=== PATIENT | male | born 1960 | race Two or more races ===

== ENCOUNTER 2017-06-18 11:53 | Emergency (ER) | payer OTHER ==
[~2017-06-18 11:53] MED LIST: CIP500 PO; D3 VITAMIN400 IU/ML; MOT600 PO; NOR5 PO; PRE10 PO; PULMICORT INH
[2017-06-18 12:59] LABS: BASOPHIL % 0.6 % (0-2); PLATELET COUNT 183 x10^3mcL (130-400); RED CELL DISTRIBUTION WIDTH 13.2 % (11.5-14.5)
[2017-06-18 13:03] LABS: CALCIUM 8.6 mg/dL (8.5-10.1); CARBON DIOXIDE 26.5 mmol/L (21-32); CHLORIDE SERUM 105 mmol/L (98-107); CREATININE SERUM 1.1 mg/dL (0.7-1.3); GFR1 > 60 mL/min; GLUCOSE SERUM 151 mg/dL (74-106); SODIUM SERUM 138 mmol/L (136-145)
[2017-06-18 13:04] LABS: microscopic required? NO
[2017-06-18 13:08] LABS: ALBUMIN 3.5 g/dL (3.4-5.0); ALKALINE PHOSPHATASE 77 U/L (46-116); ALT/SGPT 35 U/L (16-63); AST/SGOT 20 U/L (15-37); BILIRUBIN TOTAL 0.5 mg/dL (0.20-1.00); TOTAL PROTEIN, SERUM 7.5 g/dL (6.4-8.2)
[2017-06-18 13:26] LABS: UA SPECIFIC GRAVITY >=1.030 (1.005-1.035); urine erythrocyte NEGATIVE (NEGATIVE)
[2017-06-18 14:53] VITALS: BP 138/82
== END 2017-06-18 14:53 | disposition home or self-care (01) ==
LOC: ED 11:53
PROVIDERS: Emergency Medicine
DX: B34.9 Viral infection, unspecified (principal); E11.9 Type 2 diabetes mellitus without complications; I10 Essential (primary) hypertension; J45.909 Unspecified asthma, uncomplicated; E78.00 Pure hypercholesterolemia, unspecified
CPT/HCPCS: J1885; J7030

== ENCOUNTER 2017-09-18 09:04 | Emergency (ER) | payer OTHER ==
[2017-09-18 10:43] VITALS: BP 125/81
== END 2017-09-18 10:43 | disposition home or self-care (01) ==
LOC: ED 09:04
DX: J06.9 Acute upper respiratory infection, unspecified (principal)

== ENCOUNTER 2017-12-29 07:21 | Emergency (ER) | payer OTHER ==
[~2017-12-29] VITALS: Ht 177.8 cm; Wt 100.2 kg
[2017-12-29 07:30] VITALS: Ht 177.8 cm; Wt 100.2 kg
[2017-12-29 08:28] LABS: microscopic required? NO
[2017-12-29 08:34] LABS: PLATELET COUNT 233 x10^3mcL (130-400); RED CELL DISTRIBUTION WIDTH 12.9 % (11.5-14.5)
[2017-12-29 08:47] LABS: CALCIUM 8.6 mg/dL (8.5-10.1); CARBON DIOXIDE 27.7 mmol/L (21-32); CHLORIDE SERUM 105 mmol/L (98-107); GFR1 > 60 mL/min; GLUCOSE SERUM 111 mg/dL (74-106); POTASSIUM SERUM 3.9 mmol/L (3.5-5.1); SODIUM SERUM 140 mmol/L (136-145)
[2017-12-29 08:50] LABS: urine erythrocyte NEGATIVE (NEGATIVE)
[2017-12-29 08:58] LABS: ALBUMIN 3.5 g/dL (3.4-5.0); ALKALINE PHOSPHATASE 84 U/L (46-116); ALT/SGPT 41 U/L (16-63); AMYLASE 44 U/L (25-115); AST/SGOT 23 U/L (15-37); BILIRUBIN TOTAL 0.6 mg/dL (0.20-1.00); CHOLESTEROL 133 mg/dL (<200); HDL CHOLESTEROL 40 mg/dL (40-60); LIPASE 146 IU/L (73-393); T4(THYROXINE) 7.6 ug/dL (4.7-13.3); TOTAL PROTEIN, SERUM 7.2 g/dL (6.4-8.2); URIC ACID 8.3 mg/dL (3.5-7.2)
[2017-12-29 10:11] VITALS: BP 139/89
== END 2017-12-29 10:11 | disposition home or self-care (01) ==
LOC: ED 07:21
PROVIDERS: Emergency Medicine
DX: M10.9 Gout, unspecified (principal); E11.9 Type 2 diabetes mellitus without complications; I10 Essential (primary) hypertension; E78.00 Pure hypercholesterolemia, unspecified; J45.909 Unspecified asthma, uncomplicated
CPT/HCPCS: 36415; 83880

== ENCOUNTER 2018-04-05 09:33 | Emergency (ER) | payer OTHER ==
[~2018-04-05] VITALS: Ht 177.8 cm; Wt 100.0 kg
[2018-04-05 11:58] VITALS: BP 123/75
== END 2018-04-05 11:58 | disposition home or self-care (01) ==
LOC: ED 09:33
DX: M25.571 Pain in right ankle and joints of right foot (principal); I10 Essential (primary) hypertension; E11.9 Type 2 diabetes mellitus without complications; E78.00 Pure hypercholesterolemia, unspecified; M10.9 Gout, unspecified
CPT/HCPCS: J1885; J7512

== ENCOUNTER 2018-06-24 14:42 | Emergency (ER) | payer OTHER ==
[~2018-06-24] VITALS: Ht 175.3 cm; Wt 101.2 kg
[2018-06-24 14:49] VITALS: Ht 175.3 cm; Wt 101.2 kg
[2018-06-24 16:20] VITALS: BP 141/74
== END 2018-06-24 16:20 | disposition home or self-care (01) ==
LOC: ED 14:42
DX: S39.012A Strain of muscle, fascia and tendon of lower back, initial encounter (principal); J45.909 Unspecified asthma, uncomplicated; I10 Essential (primary) hypertension; E11.9 Type 2 diabetes mellitus without complications; E78.00 Pure hypercholesterolemia, unspecified; X50.0XXA Overexertion from strenuous movement or load, initial encounter; Y93.89 Activity, other specified; Y92.89 Other specified places as the place of occurrence of the external cause; Y99.8 Other external cause status
CPT/HCPCS: J1885

== ENCOUNTER 2020-05-20 15:15 | Emergency (ER) | payer OTHER, SELFPAY ==
[~2020-05-20] VITALS: Ht 177.8 cm; Wt 90.7 kg
[2020-05-20 15:17] VITALS: Ht 177.8 cm; Wt 90.7 kg
[2020-05-20 18:44] VITALS: BP 148/76
== END 2020-05-20 18:30 | disposition home or self-care (01) ==
LOC: ED 15:15
DX: U07.1 COVID-19 (principal); J45.909 Unspecified asthma, uncomplicated; I10 Essential (primary) hypertension; E11.9 Type 2 diabetes mellitus without complications; E78.00 Pure hypercholesterolemia, unspecified
CPT/HCPCS: Q0092; U0003-CS